=== PATIENT | female | born 1945 | race Two or more races ===

== ENCOUNTER 2024-06-07 04:21 | Inpatient (IN) | payer MEDICARE, OTHER ==
[~2024-06-07] VITALS: Ht 157.5 cm; Wt 57.0 kg
[2024-06-07] VITALS (11 sets, daily range): BP systolic 129–162; BP diastolic 82–97; PULSE 52–90; RESP 14–22; TEMP 98.3–98.9; O2SAT 95–100
[2024-06-07] MEDS: IPRATROPIUM BROM 0.5 MG/2.5ML INH SOL NEB ONE (04:55)
[2024-06-07] MEDS: ALBUTEROL SULF 2.5 MG/0.5ML(0.5%) NEB SOLN NEB ONE (04:55)
[2024-06-07] MEDS: levoFLOXacin 500MG 100 ML IV ONE (05:10)
[2024-06-07] MEDS: methylPREDNISolone SOD SUCC 125 MG/2 ML VL IV ONE (05:10)
[2024-06-07 05:37] LABS: Basophils # (auto) 0 10 ^3/uL (0-0.2); Basophils % (auto) 0.3 % (0.0-2.0); Eosinophils # (auto) 0 10 ^3/uL (0-0.8); Eosinophils % (auto) 0.4 % (0.0-7.0); Hematocrit 35.4 % (36.0-46.0); Hemoglobin 12.1 g/dL (12.2-16.2); Lymphocytes # (auto) 3.1 10 ^3/uL (0.4-5.4); Lymphocytes % (auto) 46.2 % (10.0-50.0); Mean Corpuscular Hemoglobin 28.8 pg (28.0-32.0); Mean Corpuscular Hgb Conc. 34.1 g/dL (32.0-36.0); Mean Corpuscular Volume 84.5 fL (80.0-100.0); Monocytes # (auto) 0.8 10 ^3/uL (0-1.3); Monocytes % (auto) 12.4 % (0.0-12.0); Neutrophils # (auto) 2.8 10 ^3/uL (1.6-8.6); Neutrophils % (auto) 40.7 % (37.0-80.0); Nucleated Red Blood Cells % 0.1 %; Platelet Count (auto) 256 10^3/uL (140-450); Red Blood Cells 4.19 10^6/uL (4.0-5.20); Red Cell Distribution Width 17.9 % (11.8-14.3); White Blood Cell 6.8 10^3/uL (4.4-10.8)
[2024-06-07 05:42] LABS: Anion Gap 9 (5-15); Carbon Dioxide 25 mmol/L (20-30); Chloride 107 mmol/L (98-107); Potassium 3.6 mmol/L (3.5-5.1); Sodium 141 mmol/L (136-145)
[2024-06-07 05:43] LABS: Calcium 9.5 mg/dL (8.7-10.4)
[2024-06-07 05:48] LABS: BUN/Creatinine Ratio 23.7 (10.0-20.0); Blood Urea Nitrogen 27 mg/dL (9-23); Glucose 179 mg/dL (74-106)
[2024-06-07 07:06] LABS: COVID19 ANTIGEN SOFIA FIA NEGATIVE (NEGATIVE); Rapid Influenza A Negative (Negative); Rapid Influenza B Negative (Negative)
[2024-06-07] MEDS ORDERED: ONDANSETRON HCL 4 MG/2 ML VIAL IV PRN (11:00)
[2024-06-07] MEDS ORDERED: ALBUTEROL SULF 2.5 MG/0.5ML(0.5%) NEB SOLN NEB PRN (11:00)
[2024-06-07] MEDS ORDERED: DEXTROSE (50%) 50ML SYRG IV PRN ×2 (11:00→11:15)
[2024-06-07] MEDS ORDERED: IPRATROPIUM BROM 0.5 MG/2.5ML INH SOL NEB PRN (11:00)
[2024-06-07] MEDS ORDERED: MORPHINE SULFATE INJ 2 MG/ml SYRG IV PRN (11:00)
[2024-06-07] MEDS ORDERED: NITROGLYCERIN 0.4 MG SL TAB SL PRN (11:00)
[2024-06-07] MEDS ORDERED: SACU1TAB7 PO (11:13)
[2024-06-07] MEDS ORDERED: CARV25TA55 PO (11:13)
[2024-06-07] MEDS ORDERED: AMLO1TAB22 PO (11:13)
[2024-06-07] MEDS ORDERED: FAMO-12 PO (11:13)
[2024-06-07] MEDS ORDERED: EMPA1TAB PO (11:13)
[2024-06-07] MEDS ORDERED: ROSU40TA47 PO (11:13)
[2024-06-07] MEDS ORDERED: CARV12.544 PO (11:13)
[2024-06-07] MEDS ORDERED: FURO20TA4 PO (11:15)
[2024-06-07] MEDS ORDERED: hydrALAZINE HCL 20 MG/ML VL IV PRN (11:15)
[2024-06-07] MEDS ORDERED: ACCU-CHEK COMFORT CURVE STRIP VI SCH (11:30)
[2024-06-07] MEDS ORDERED: InsuLIN REG 1unit/0.01ml Soln (100units/ml) SC SCH (11:30)
[2024-06-07] MEDS: ACCU-CHEK COMFORT CURVE STRIP VI SCH (11:32)
[2024-06-07 11:39] LABS: Triglycerides 138 mg/dL (< 150)
[2024-06-07 11:40] LABS: LDL Cholesterol 103 mg/dL (< 100)
[2024-06-07] MEDS: InsuLIN REG 1unit/0.01ml Soln (100units/ml) SC SCH (11:40)
[2024-06-07 11:41] LABS: Cholesterol 176 mg/dL (< 200); HDL Cholesterol 44 mg/dL (40-59)
[2024-06-07 11:46] LABS: Alanine Aminotransferase 25 U/L (7-40); Aspartate Aminotransferase 17 U/L (13-40)
[2024-06-07] MEDS: SODIUM CHLORIDE 0.9% 1,000 ML IV SCH (11:48)
[2024-06-07] MEDS: FUROSEMIDE 20 MG TAB PO ONE (11:49)
[2024-06-07] MEDS: IPRATROPIUM BROM 0.5 MG/2.5ML INH SOL NEB SCH (12:26)
[2024-06-07] MEDS: ALBUTEROL SULF 2.5 MG/0.5ML(0.5%) NEB SOLN NEB SCH (12:26)
[2024-06-07 12:27] LABS: Urine Bacteria None Seen /hpf (None Seen)
[2024-06-07 12:55] LABS: Urine Blood Negative /uL (Negative); Urine Clarity Clear (Clear); Urine Color Light-Yellow (Yellow); Urine Protein, UAD 1+ (Negative); Urine Specific Gravity 1.021 (1.001-1.035); Urine Urobilinogen Normal (Negative); Urine WBC 2 /hpf (0 - 5); Urine pH 5.5 (5.0-9.0)
[2024-06-07] MEDS: CARVEDILOL 12.5 MG TAB PO SCH (21:55)
[2024-06-07] MEDS: Sacubitril-Valsartan (Entresto 49-51 mg) 1 TAB PO SCH (21:58)
[2024-06-07] MEDS: HYDROcodone-ACET 5/325MG TAB PO PRN (22:42)
[2024-06-08] VITALS (14 sets, daily range): BP systolic 102–128; BP diastolic 56–75; PULSE 45–69; RESP 14–21; TEMP 97.6–98.5; O2SAT 96–100
[2024-06-08 07:34] LABS: Basophils # (auto) 0 10 ^3/uL (0-0.2); Basophils % (auto) 0.2 % (0.0-2.0); Eosinophils # (auto) 0 10 ^3/uL (0-0.8); Eosinophils % (auto) 0.1 % (0.0-7.0); Hematocrit 37.1 % (36.0-46.0); Hemoglobin 12.7 g/dL (12.2-16.2); Lymphocytes # (auto) 1.5 10 ^3/uL (0.4-5.4); Lymphocytes % (auto) 17.9 % (10.0-50.0); Mean Corpuscular Hemoglobin 28.9 pg (28.0-32.0); Mean Corpuscular Hgb Conc. 34.1 g/dL (32.0-36.0); Mean Corpuscular Volume 84.7 fL (80.0-100.0); Monocytes % (auto) 11.3 % (0.0-12.0); Neutrophils # (auto) 6.1 10 ^3/uL (1.6-8.6); Neutrophils % (auto) 70.5 % (37.0-80.0); Nucleated Red Blood Cells % 0.2 %; Platelet Count (auto) 309 10^3/uL (140-450); Red Blood Cells 4.38 10^6/uL (4.0-5.20); Red Cell Distribution Width 17.7 % (11.8-14.3); White Blood Cell 8.6 10^3/uL (4.4-10.8)
[2024-06-08 07:36] LABS: Alanine Aminotransferase 22 U/L (7-40); Albumin 4.1 g/dL (3.2-4.8); Alkaline Phosphatase 52 U/L (46-116); Anion Gap 9 (5-15); Aspartate Aminotransferase 27 U/L (13-40); BUN/Creatinine Ratio 27.2 (10.0-20.0); Blood Urea Nitrogen 31 mg/dL (9-23); Calcium 9.6 mg/dL (8.7-10.4); Carbon Dioxide 24 mmol/L (20-30); Chloride 105 mmol/L (98-107); Glucose 189 mg/dL (74-106); Potassium 4.2 mmol/L (3.5-5.1); Sodium 138 mmol/L (136-145); Total Protein 6.9 g/dL (5.7-8.2)
[2024-06-08] MEDS: amLODIPine BESYLATE 5 MG TAB PO SCH (09:00)
[2024-06-08] MEDS: EMPAGLIFLOZIN 10 MG TAB PO SCH (09:01)
[2024-06-08] MEDS: FUROSEMIDE 20 MG TAB PO SCH (09:01)
[2024-06-08] MEDS: FAMOTIDINE 20 MG TAB PO SCH (09:01)
[2024-06-08] MEDS: ATORVASTATIN 20 MG TAB PO SCH (09:01)
[2024-06-08] MEDS: ENOXAPARIN SOD 40 MG/0.4 ML SYRINGE SC SCH (09:02)
[2024-06-08] MEDS: FUROSEMIDE 20 MG/2 ML VIAL IV ONE (17:19)
[2024-06-08] MEDS ORDERED: FLUT1AER3 IN (18:49)
[2024-06-08] MEDS ORDERED: EZET10TA22 PO (18:49)
[2024-06-08] MEDS: SACUBITRIL-VALSARTAN 24mg/26mg TAB PO SCH (21:52)
[2024-06-08] MEDS: CARVEDILOL 12.5 MG TAB PO SCH (21:53)
[2024-06-09] VITALS (16 sets, daily range): BP systolic 90–109; BP diastolic 47–70; PULSE 54–67; RESP 14–18; TEMP 97.6–98.7; O2SAT 94–100
[2024-06-09 06:09] LABS: Anion Gap 11 (5-15); Carbon Dioxide 24 mmol/L (20-30); Chloride 106 mmol/L (98-107); Potassium 3.1 mmol/L (3.5-5.1); Sodium 141 mmol/L (136-145)
[2024-06-09 06:10] LABS: Basophils # (auto) 0 10 ^3/uL (0-0.2); Basophils % (auto) 0.3 % (0.0-2.0); Calcium 9.4 mg/dL (8.7-10.4); Eosinophils # (auto) 0 10 ^3/uL (0-0.8); Eosinophils % (auto) 0.4 % (0.0-7.0); Hematocrit 37.4 % (36.0-46.0); Hemoglobin 12.7 g/dL (12.2-16.2); Lymphocytes # (auto) 2.4 10 ^3/uL (0.4-5.4); Mean Corpuscular Hemoglobin 28.9 pg (28.0-32.0); Mean Corpuscular Hgb Conc. 33.8 g/dL (32.0-36.0); Mean Corpuscular Volume 85.5 fL (80.0-100.0); Monocytes # (auto) 0.7 10 ^3/uL (0-1.3); Monocytes % (auto) 12.4 % (0.0-12.0); Neutrophils # (auto) 2.3 10 ^3/uL (1.6-8.6); Neutrophils % (auto) 41.9 % (37.0-80.0); Nucleated Red Blood Cells % 0.1 %; Platelet Count (auto) 280 10^3/uL (140-450); Red Blood Cells 4.38 10^6/uL (4.0-5.20); Red Cell Distribution Width 18.1 % (11.8-14.3); White Blood Cell 5.4 10^3/uL (4.4-10.8)
[2024-06-09 06:15] LABS: Blood Urea Nitrogen 40 mg/dL (9-23); Glucose 96 mg/dL (74-106); Magnesium 2.1 mg/dL (1.6-2.6)
[2024-06-09] MEDS: FUROSEMIDE 20 MG/2 ML VIAL IV SCH (10:00)
[2024-06-09] MEDS: POTASSIUM EFFERVESENT TAB 25 MEQ PO ONE (21:41)
[2024-06-09] MEDS: CARVEDILOL 3.125 MG TAB PO SCH (21:44)
[2024-06-10] VITALS (14 sets, daily range): BP systolic 95–105; BP diastolic 56–59; PULSE 60–99; RESP 14–18; TEMP 97.9–99.4; O2SAT 95–100
[2024-06-10 06:28] LABS: Basophils # (auto) 0 10 ^3/uL (0-0.2); Basophils % (auto) 0.2 % (0.0-2.0); Eosinophils # (auto) 0 10 ^3/uL (0-0.8); Eosinophils % (auto) 0.8 % (0.0-7.0); Hematocrit 35.7 % (36.0-46.0); Lymphocytes # (auto) 2.4 10 ^3/uL (0.4-5.4); Lymphocytes % (auto) 42.2 % (10.0-50.0); Mean Corpuscular Hemoglobin 28.7 pg (28.0-32.0); Mean Corpuscular Hgb Conc. 33.8 g/dL (32.0-36.0); Mean Corpuscular Volume 84.9 fL (80.0-100.0); Monocytes # (auto) 0.7 10 ^3/uL (0-1.3); Neutrophils # (auto) 2.5 10 ^3/uL (1.6-8.6); Neutrophils % (auto) 44.8 % (37.0-80.0); Nucleated Red Blood Cells % 0.1 %; Platelet Count (auto) 253 10^3/uL (140-450); Red Cell Distribution Width 18.2 % (11.8-14.3); White Blood Cell 5.6 10^3/uL (4.4-10.8)
[2024-06-10 06:35] LABS: Calcium 9.2 mg/dL (8.7-10.4); Chloride 106 mmol/L (98-107); Potassium 3.8 mmol/L (3.5-5.1); Sodium 141 mmol/L (136-145)
[2024-06-10 06:36] LABS: Anion Gap 8 (5-15); Carbon Dioxide 27 mmol/L (20-30)
[2024-06-10 06:41] LABS: BUN/Creatinine Ratio 36.4 (10.0-20.0); Blood Urea Nitrogen 48 mg/dL (9-23); Glucose 132 mg/dL (74-106)
[2024-06-10 06:42] LABS: Magnesium 2.1 mg/dL (1.6-2.6)
[2024-06-11] VITALS (13 sets, daily range): BP systolic 107–123; BP diastolic 54–63; PULSE 59–73; RESP 14–18; TEMP 97.5–98.7; O2SAT 93–100
[2024-06-11 06:28] LABS: Anion Gap 8 (5-15); Calcium 9.1 mg/dL (8.7-10.4); Carbon Dioxide 25 mmol/L (20-30); Chloride 108 mmol/L (98-107); Potassium 3.4 mmol/L (3.5-5.1); Sodium 141 mmol/L (136-145)
[2024-06-11 06:30] LABS: Basophils # (auto) 0 10 ^3/uL (0-0.2); Basophils % (auto) 0.3 % (0.0-2.0); Eosinophils # (auto) 0.1 10 ^3/uL (0-0.8); Eosinophils % (auto) 1.1 % (0.0-7.0); Hematocrit 35.3 % (36.0-46.0); Hemoglobin 11.9 g/dL (12.2-16.2); Lymphocytes # (auto) 2.3 10 ^3/uL (0.4-5.4); Lymphocytes % (auto) 47.5 % (10.0-50.0); Mean Corpuscular Hemoglobin 28.9 pg (28.0-32.0); Mean Corpuscular Hgb Conc. 33.6 g/dL (32.0-36.0); Monocytes # (auto) 0.7 10 ^3/uL (0-1.3); Monocytes % (auto) 13.9 % (0.0-12.0); Neutrophils # (auto) 1.8 10 ^3/uL (1.6-8.6); Neutrophils % (auto) 37.2 % (37.0-80.0); Nucleated Red Blood Cells % 0.2 %; Platelet Count (auto) 222 10^3/uL (140-450); Red Blood Cells 4.11 10^6/uL (4.0-5.20); Red Cell Distribution Width 17.6 % (11.8-14.3); White Blood Cell 4.9 10^3/uL (4.4-10.8)
[2024-06-11 06:34] LABS: BUN/Creatinine Ratio 27.2 (10.0-20.0); Blood Urea Nitrogen 31 mg/dL (9-23); Glucose 103 mg/dL (74-106)
[2024-06-11 06:35] LABS: Magnesium 2.3 mg/dL (1.6-2.6)
[2024-06-11] MEDS: POTASSIUM EFFERVESENT TAB 25 MEQ PO ONE (07:05)
[2024-06-11] MEDS: PANTOPRAZOLE 40 MG/10 ML VIAL INJ IV ONE (11:15)
[2024-06-11 13:06] LABS: Base Excess 2.5 mmol/L (-2.0-3.0)
[2024-06-11] MEDS: SPIRONOLACTONE 25 MG TAB PO ONE (16:00)
[2024-06-11] MEDS ORDERED: SITA50TA PO (17:32)
[2024-06-11] MEDS ORDERED: MECL-126 PO (17:32)
[2024-06-11] MEDS ORDERED: MORPHINE SULFATE INJ 2 MG/ml SYRG ONE (23:12)
[2024-06-12] VITALS (16 sets, daily range): BP systolic 105–133; BP diastolic 54–65; PULSE 61–77; RESP 15–19; TEMP 98.5–99.3; O2SAT 94–100
[2024-06-12 08:25] LABS: Basophils # (auto) 0 10 ^3/uL (0-0.2); Basophils % (auto) 0.3 % (0.0-2.0); Eosinophils # (auto) 0.1 10 ^3/uL (0-0.8); Hematocrit 36.6 % (36.0-46.0); Hemoglobin 12.2 g/dL (12.2-16.2); Lymphocytes # (auto) 2.5 10 ^3/uL (0.4-5.4); Lymphocytes % (auto) 38.1 % (10.0-50.0); Mean Corpuscular Hemoglobin 28.5 pg (28.0-32.0); Mean Corpuscular Hgb Conc. 33.3 g/dL (32.0-36.0); Mean Corpuscular Volume 85.7 fL (80.0-100.0); Monocytes # (auto) 0.8 10 ^3/uL (0-1.3); Monocytes % (auto) 11.9 % (0.0-12.0); Neutrophils # (auto) 3.2 10 ^3/uL (1.6-8.6); Neutrophils % (auto) 48.7 % (37.0-80.0); Nucleated Red Blood Cells % 0.1 %; Platelet Count (auto) 217 10^3/uL (140-450); Red Blood Cells 4.27 10^6/uL (4.0-5.20); Red Cell Distribution Width 17.7 % (11.8-14.3); White Blood Cell 6.6 10^3/uL (4.4-10.8)
[2024-06-12 08:33] LABS: Anion Gap 7 (5-15); Carbon Dioxide 27 mmol/L (20-30); Chloride 105 mmol/L (98-107); Potassium 4.1 mmol/L (3.5-5.1); Sodium 139 mmol/L (136-145)
[2024-06-12 08:34] LABS: Calcium 9.3 mg/dL (8.7-10.4)
[2024-06-12 08:39] LABS: BUN/Creatinine Ratio 21.8 (10.0-20.0); Blood Urea Nitrogen 24 mg/dL (9-23); Glucose 117 mg/dL (74-106)
[2024-06-12 08:40] LABS: Magnesium 2.2 mg/dL (1.6-2.6)
[2024-06-12] MEDS: SPIRONOLACTONE 25 MG TAB PO SCH (10:37)
[2024-06-12] MEDS: PANTOPRAZOLE 40 MG/10 ML VIAL INJ IV SCH (10:38)
[2024-06-12] MEDS ORDERED: diphenhdrAMINE HCL 50 MG/1 ML VL IV PRN (15:30)
[2024-06-12] MEDS: EPINEPHrine HCL 0.5 ML NEB NEB ONE (16:22)
[2024-06-12] MEDS: ALBUTEROL SULF 2.5 MG/0.5ML(0.5%) NEB SOLN NEB ONE (16:22)
[2024-06-12] MEDS: predniSONE 20 MG TAB PO ONE (16:34)
[2024-06-12] MEDS ORDERED: CARV-214 PO (17:21)
[2024-06-12] MEDS ORDERED: SACU1TAB PO (17:21)
[2024-06-12] MEDS ORDERED: SPIR25TA PO (17:21)
[2024-06-13] VITALS (12 sets, daily range): BP systolic 101–128; BP diastolic 50–69; PULSE 60–80; RESP 14–22; TEMP 97.4–98.3; O2SAT 92–99
[2024-06-13 06:24] LABS: Chloride 105 mmol/L (98-107); Potassium 4.6 mmol/L (3.5-5.1); Sodium 137 mmol/L (136-145)
[2024-06-13] MEDS: PANTOPRAZOLE 40 MG TAB PO SCH (06:24)
[2024-06-13 06:25] LABS: Anion Gap 7 (5-15); Calcium 9.6 mg/dL (8.7-10.4); Carbon Dioxide 25 mmol/L (20-30)
[2024-06-13 06:30] LABS: BUN/Creatinine Ratio 19.7 (10.0-20.0); Blood Urea Nitrogen 25 mg/dL (9-23); Glucose 213 mg/dL (74-106)
[2024-06-13 06:31] LABS: Magnesium 2.2 mg/dL (1.6-2.6)
[2024-06-13] MEDS ORDERED: EPINEPHrine HCL 0.5 ML NEB NEB ONE (13:00)
[2024-06-13] MEDS: predniSONE 20 MG TAB PO ONE (13:44)
[2024-06-14] MEDS ORDERED: ENOXAPARIN SOD 30 MG/0.3 ML SYRINGE SC SCH (10:00)
== END 2024-06-13 17:40 | disposition home health service (06) | DRG 291 ==
LOC: ER 04:21 → EDBD 04:21 → TELE 11:03 → TELE-WESTW 18:27
PROVIDERS: ADMIT Internal Medicine Pulmonary Disease; ATTEND Internal Medicine Pulmonary Disease
DX: I11.0 Hypertensive heart disease with heart failure (principal); I50.23 Acute on chronic systolic (congestive) heart failure; J96.01 Acute respiratory failure with hypoxia; J44.1 Chronic obstructive pulmonary disease with (acute) exacerbation; E11.9 Type 2 diabetes mellitus without complications; K29.70 Gastritis, unspecified, without bleeding; Z20.822 Contact with and (suspected) exposure to COVID-19; Z90.49 Acquired absence of other specified parts of digestive tract; Z88.0 Allergy status to penicillin; Z95.810 Presence of automatic (implantable) cardiac defibrillator; Z88.8 Allergy status to other drugs, medicaments and biological substances
CPT/HCPCS: 36415; 36600; 70490; 71045; 74176; 80048; 80053; 80061; 81001; 82805; 82962; 83036; 83735; 83880; 84443; 84450; 84460; 84484; 85025; 85379; 87081; 87426; 87804; 93005; 93306; 93970; 94640; 96374; 97110; 97116; 97163; 97530; 99291; G0378; J1815; J1956; J2470

== ENCOUNTER 2024-06-30 04:25 | Inpatient (IN) | payer MEDICARE, OTHER ==
[~2024-06-30] VITALS: Ht 152.4 cm; Wt 53.4 kg
[~2024-06-30 04:25] MED LIST: AMLO1TAB22 PO; CARV-214 PO; EMPA1TAB PO; EZET10TA22 PO; FAMO-12 PO; FLUT1AER3 IN; FLUT50SP31; FURO20TA4 PO; LEVEMIR SC; MECL-126 PO; ROSU40TA47 PO; SACU1TAB PO; SEMA2INJ3 SC; SITA50TA PO; SPIR25TA PO
[2024-06-30 05:55] LABS: Basophils # (auto) 0 10 ^3/uL (0-0.2); Basophils % (auto) 0.2 % (0.0-2.0); Eosinophils # (auto) 0.1 10 ^3/uL (0-0.8); Eosinophils % (auto) 0.9 % (0.0-7.0); Hematocrit 35.7 % (36.0-46.0); Hemoglobin 12.2 g/dL (12.2-16.2); Lymphocytes # (auto) 1.5 10 ^3/uL (0.4-5.4); Lymphocytes % (auto) 15.4 % (10.0-50.0); Mean Corpuscular Hgb Conc. 34.1 g/dL (32.0-36.0); Mean Corpuscular Volume 85.2 fL (80.0-100.0); Monocytes # (auto) 1.2 10 ^3/uL (0-1.3); Monocytes % (auto) 12.7 % (0.0-12.0); Neutrophils # (auto) 6.9 10 ^3/uL (1.6-8.6); Neutrophils % (auto) 70.8 % (37.0-80.0); Platelet Count (auto) 174 10^3/uL (140-450); Red Blood Cells 4.19 10^6/uL (4.0-5.20); Red Cell Distribution Width 18.5 % (11.8-14.3); White Blood Cell 9.7 10^3/uL (4.4-10.8)
[2024-06-30 05:58] LABS: Anion Gap 7 (5-15); Carbon Dioxide 23 mmol/L (20-31); Chloride 106 mmol/L (98-107); Potassium 3.3 mmol/L (3.5-5.1); Sodium 136 mmol/L (136-145)
[2024-06-30 05:59] LABS: Calcium 9.3 mg/dL (8.7-10.4)
[2024-06-30 06:04] LABS: BUN/Creatinine Ratio 26.8 (10.0-20.0); Blood Urea Nitrogen 26 mg/dL (9-23); Glucose 106 mg/dL (74-106)
[2024-06-30 06:10] VITALS: RESP 16; O2SAT 96
[2024-06-30 08:03] LABS: Urine Bacteria MANY /hpf (None Seen); Urine Blood Negative /uL (Negative); Urine Clarity Clear (Clear); Urine Color Light-Yellow (Yellow); Urine Protein, UAD 1+ (Negative); Urine Specific Gravity 1.014 (1.001-1.035); Urine Urobilinogen Normal (Negative); Urine WBC 18 /hpf (0 - 5); Urine pH 5.5 (5.0-9.0)
[2024-06-30] MEDS: DEXTROSE (50%) 50ML SYRG IV ONE (08:43)
[2024-06-30 09:23] VITALS: PULSE 60; RESP 18; O2SAT 97
[2024-06-30] MEDS: DEXTROSE 10% 250 ML IV ONE (10:28)
[2024-06-30] MEDS: ENOXAPARIN SOD 80 MG/0.8ML SYRINGE SC ONE (10:29)
[2024-06-30] MEDS: SULFAMETH-TRIMETH 80/16MG-ML 10 ML in D5W 5% 250 ML IV ONE (11:30)
[2024-06-30] MEDS ORDERED: MORPHINE SULFATE INJ 2 MG/ml SYRG IV PRN (13:30)
[2024-06-30] MEDS ORDERED: ONDANSETRON HCL 4 MG/2 ML VIAL IV PRN (13:30)
[2024-06-30] MEDS ORDERED: NITROGLYCERIN 0.4 MG SL TAB SL PRN (13:30)
[2024-06-30] MEDS ORDERED: DEXTROSE (50%) 50ML SYRG IV PRN (13:30)
[2024-06-30] MEDS: SODIUM CHLORIDE 0.9% 1,000 ML IV ONE (15:19)
[2024-06-30] MEDS: POTASSIUM CHL 20MEQ/100ML 100 ML IV ONE (15:19)
[2024-06-30] MEDS: ACCU-CHEK COMFORT CURVE STRIP VI SCH (16:00)
[2024-06-30] MEDS: levoFLOXacin 500MG 100 ML IV ONE (17:56)
[2024-06-30] MEDS ORDERED: SACUBITRIL-VALSARTAN 24mg/26mg TAB PO SCH (22:00)
[2024-06-30 22:45] VITALS: BP 93/63; PULSE 74; RESP 16; TEMP 98.6; O2SAT 98
[2024-06-30 23:19] VITALS: BP 115/75; PULSE 74; RESP 18; TEMP 98; O2SAT 98
[2024-06-30] MEDS: ATORVASTATIN 20 MG TAB PO SCH (23:51)
[2024-06-30] MEDS: CARVEDILOL 3.125 MG TAB PO SCH (23:51)
[2024-07-01] VITALS (8 sets, daily range): BP systolic 99–152; BP diastolic 55–89; PULSE 73–98; RESP 16–19; TEMP 98–98.7; O2SAT 96–98
[2024-07-01 06:46] LABS: Basophils # (auto) 0 10 ^3/uL (0-0.2); Basophils % (auto) 0.2 % (0.0-2.0); Eosinophils # (auto) 0.1 10 ^3/uL (0-0.8); Eosinophils % (auto) 0.9 % (0.0-7.0); Hematocrit 35.6 % (36.0-46.0); Hemoglobin 12.2 g/dL (12.2-16.2); Lymphocytes # (auto) 1.8 10 ^3/uL (0.4-5.4); Lymphocytes % (auto) 22.8 % (10.0-50.0); Mean Corpuscular Hemoglobin 29.1 pg (28.0-32.0); Mean Corpuscular Hgb Conc. 34.3 g/dL (32.0-36.0); Mean Corpuscular Volume 84.8 fL (80.0-100.0); Monocytes # (auto) 1.1 10 ^3/uL (0-1.3); Neutrophils # (auto) 4.9 10 ^3/uL (1.6-8.6); Neutrophils % (auto) 62.1 % (37.0-80.0); Nucleated Red Blood Cells % 0.1 %; Platelet Count (auto) 179 10^3/uL (140-450); Red Cell Distribution Width 19.3 % (11.8-14.3); White Blood Cell 7.9 10^3/uL (4.4-10.8)
[2024-07-01 07:08] LABS: Alanine Aminotransferase 19 U/L (7-40); Albumin 3.6 g/dL (3.2-4.8); Alkaline Phosphatase 55 U/L (46-116); Anion Gap 11 (5-15); Aspartate Aminotransferase 30 U/L (13-40); BUN/Creatinine Ratio 19.2 (10.0-20.0); Bilirubin, Total 0.6 mg/dL (0.2-1.0); Blood Urea Nitrogen 19 mg/dL (9-23); Calcium 9.2 mg/dL (8.7-10.4); Carbon Dioxide 20 mmol/L (20-31); Chloride 106 mmol/L (98-107); Glucose 177 mg/dL (74-106); Potassium 4.2 mmol/L (3.5-5.1); Sodium 137 mmol/L (136-145); Total Protein 5.9 g/dL (5.7-8.2)
[2024-07-01] MEDS: levoFLOXacin 250MG 50 ML IV SCH (09:03)
[2024-07-01] MEDS: FAMOTIDINE 20 MG TAB PO SCH (09:04)
[2024-07-01] MEDS: ENOXAPARIN SOD 40 MG/0.4 ML SYRINGE SC SCH (09:10)
[2024-07-01] MEDS ORDERED: EZETIMIBE 10 MG TAB PO SCH (10:00)
[2024-07-01] MEDS: amLODIPine BESYLATE 5 MG TAB PO SCH (10:00)
[2024-07-01] MEDS ORDERED: PATIENTS OWN MEDICATION (Rosuvastatin Calcium 1 TAB) PO SCH (10:00)
[2024-07-01] MEDS: EZETIMIBE 10 MG TAB PO SCH (10:00)
[2024-07-01] MEDS ORDERED: levoFLOXacin 500MG 100 ML IV SCH (10:00)
[2024-07-01] MEDS: DOCUSATE SOD 100 MG CAP PO PRN (12:19)
[2024-07-01] MEDS ORDERED: DEXTROSE (50%) 50ML SYRG IV PRN (14:00)
[2024-07-01] MEDS: InsuLIN REG 1unit/0.01ml Soln (100units/ml) SC SCH (16:27)
[2024-07-01] MEDS: ACCU-CHEK COMFORT CURVE STRIP VI SCH (16:28)
[2024-07-01 21:49] LABS: Triglycerides 465 mg/dL (< 150)
[2024-07-01 21:50] LABS: Cholesterol 205 mg/dL (< 200); HDL Cholesterol 34 mg/dL (40-59)
[2024-07-01] MEDS: LACTULOSE 20Gm/30ML SOLN PO SCH (21:52)
[2024-07-02 01:00] VITALS: BP 136/77; PULSE 80; RESP 18; TEMP 98.7; O2SAT 100
[2024-07-02 05:00] VITALS: BP 140/79; PULSE 72; RESP 18; TEMP 98.6; O2SAT 96
[2024-07-02 06:40] LABS: Basophils # (auto) 0 10 ^3/uL (0-0.2); Basophils % (auto) 0.4 % (0.0-2.0); Eosinophils # (auto) 0.1 10 ^3/uL (0-0.8); Eosinophils % (auto) 0.8 % (0.0-7.0); Hematocrit 34.9 % (36.0-46.0); Hemoglobin 12.2 g/dL (12.2-16.2); Lymphocytes # (auto) 0.8 10 ^3/uL (0.4-5.4); Lymphocytes % (auto) 9.3 % (10.0-50.0); Mean Corpuscular Hemoglobin 29.7 pg (28.0-32.0); Mean Corpuscular Hgb Conc. 35.1 g/dL (32.0-36.0); Mean Corpuscular Volume 84.6 fL (80.0-100.0); Monocytes # (auto) 0.8 10 ^3/uL (0-1.3); Monocytes % (auto) 9.3 % (0.0-12.0); Neutrophils % (auto) 80.2 % (37.0-80.0); Nucleated Red Blood Cells % 0.1 %; Platelet Count (auto) 162 10^3/uL (140-450); Red Blood Cells 4.12 10^6/uL (4.0-5.20); Red Cell Distribution Width 18.6 % (11.8-14.3); White Blood Cell 8.8 10^3/uL (4.4-10.8)
[2024-07-02 07:00] LABS: Alanine Aminotransferase 17 U/L (7-40); Albumin 3.7 g/dL (3.2-4.8); Alkaline Phosphatase 59 U/L (46-116); Anion Gap 10 (5-15); Aspartate Aminotransferase 30 U/L (13-40); Bilirubin, Total 0.8 mg/dL (0.2-1.0); Blood Urea Nitrogen 20 mg/dL (9-23); Calcium 9.1 mg/dL (8.7-10.4); Carbon Dioxide 20 mmol/L (20-31); Chloride 107 mmol/L (98-107); Glucose 129 mg/dL (74-106); Potassium 3.8 mmol/L (3.5-5.1); Sodium 137 mmol/L (136-145); Total Protein 6.1 g/dL (5.7-8.2)
[2024-07-02 07:43] LABS: Free T4 (Free Thyroxine) 1.56 ng/dL (0.89-1.76)
[2024-07-02 07:44] LABS: T3 Total 0.61 ng/mL (0.60-1.81)
[2024-07-02 08:00] VITALS: PULSE 71; RESP 18; O2SAT 97
[2024-07-02 08:27] VITALS: BP 118/71; PULSE 74; RESP 15; TEMP 98; O2SAT 99
[2024-07-02] MEDS: FLEET ENEMA(ADULT) 135 ML PR ONE (08:45)
[2024-07-02] MEDS ORDERED: cefTRIAXone 1GM/50ML D5W 50 ML IV SCH (09:00)
[2024-07-02] MEDS: levoFLOXacin 500 MG TAB PO SCH (10:02)
[2024-07-02] MEDS ORDERED: LEVO500T91 PO (10:49)
[2024-07-02 11:11] VITALS: BP 118/71; PULSE 75; RESP 18; TEMP 36.7; O2SAT 74
[2024-07-02 12:20] VITALS: BP 97/68; PULSE 63; RESP 16; TEMP 97.9; O2SAT 97
== END 2024-07-02 12:50 | disposition home or self-care (01) | DRG 637 ==
LOC: ER 04:25 → EDBD 04:25 → TELE 13:36 → TELE-WESTW 22:09
PROVIDERS: ADMIT Internal Medicine; ATTEND Internal Medicine
DX: E11.649 Type 2 diabetes mellitus with hypoglycemia without coma (principal); G93.41 Metabolic encephalopathy; I21.A1 Myocardial infarction type 2; I50.23 Acute on chronic systolic (congestive) heart failure; N30.00 Acute cystitis without hematuria; I11.0 Hypertensive heart disease with heart failure; E87.6 Hypokalemia; E78.5 Hyperlipidemia, unspecified; Z83.3 Family history of diabetes mellitus; Z88.0 Allergy status to penicillin; Z79.899 Other long term (current) drug therapy; Z79.84 Long term (current) use of oral hypoglycemic drugs; Z90.49 Acquired absence of other specified parts of digestive tract; Z90.710 Acquired absence of both cervix and uterus
CPT/HCPCS: 36415; 71045; 80048; 80053; 80061; 81001; 82962; 83880; 84439; 84443; 84480; 84484; 85025; 87081; 93005; 96361; 96365; 96366; 96372; 96375; 99291; G0378; J1815; J1956; J3480; J3490; J7060